=== PATIENT | female | born 1965 | race Caucasian/White ===

== ENCOUNTER 2019-07-25 20:10 | Inpatient (IN) | payer SELFPAY ==
[~2019-07-25] VITALS: Ht 165.1 cm; Wt 64.0 kg
--- NOTE | 2019-07-25 20:16 | NUR ---
"[id number] FROM [facility], PT GIVEN 5MG VERSED PER EMS." PT TO BED 7, PT ON MONITOR, VSS, NAD NOTED, PENDIGN MD MUNOZ
[2019-07-25 20:46] LABS: BASOPHILS % (AUTO) 1.2 % (0.0-2.0); EOSINOPHILS % (AUTO) 1.5 % (0.0-6.0); HEMATOCRIT 34 % (33-45); HEMOGLOBIN 11.6 g/dL (11.5-14.8); LYMPHOCYTES # (AUTO) 0.4 /CMM (0.8-4.8); LYMPHOCYTES % (AUTO) 15.5 % (20.0-44.0); MEAN CORPUSCULAR HGB CONC 34 g/dl (31.0-36.0); MEAN CORPUSCULAR VOLUME 102 fL (82-100); MONOCYTES # (AUTO) 0.3 /CMM (0.1-1.30); NEUTROPHILS # (AUTO) 1.8 /CMM (1.8-8.9); NEUTROPHILS % (AUTO) 70.8 % (43.0-81.0); PLATELET COUNT (AUTO) 71 /CMM (150-450); RED BLOOD CELL COUNT(AUTO) 3.35 MIL/uL (4.0-5.2); WHITE BLOOD COUNT (AUTO) 2.6 K/uL (4.3-11.0)
[2019-07-25 20:56] LABS: CALCIUM, SERUM 8.7 mg/dL (8.5-10.1); CREATININE 0.5 mg/dL (0.6-1.3); POTASSIUM 3.3 mmol/L (3.5-5.1)
[2019-07-25 21:02] LABS: ALBUMIN 3.1 g/dL (3.4-5.0); BILIRUBIN,TOTAL 2.2 mg/dL (0.2-1.0); TOTAL PROTEIN, SERUM 7.6 g/dL (6.4-8.2)
[2019-07-25 21:28] LABS: LYMPHOCYTES % (MANUAL) 13 % (16-48); MONOCYTES % (MANUAL) 7 % (0-11.0); NEUTROPHILS % (MANUAL) 80 (42-76)
--- NOTE | 2019-07-25 22:05 | NUR ---
PAGED DR. PARKER
--- NOTE | 2019-07-25 22:23 | NUR ---
BED ASSIGNMENT: 322-1
--- NOTE | 2019-07-25 22:55 | NUR ---
REPORT GIVEN TO BJORN ELDRIDGE FOR ROSE MARIE PT WILL BE TRANSPOERTED TO 3RD FLOOR
[2019-07-25 23:00] VITALS: BP 96/62
[2019-07-25] MEDS ORDERED: MAGNESIUM HYDROXIDE 30 ML UDC PO PRN (23:00)
[2019-07-25] MEDS ORDERED: MAG HYDROX/AL HYDROX/SIMETH 30 ML UDC PO PRN (23:00)
[2019-07-25] MEDS ORDERED: LORAZEPAM INJ 2 MG/ML VIAL IV PRN (23:00)
--- NOTE | 2019-07-25 23:00 | NUR ---
TELE/RN NOTES RECEIVED PT. FROM ER VIA WHEELCHAIR. PT. IS AWAKE, ALERT AND ORIENTED X3. BREATHING EVEN AND UNLABORED ON ROOM AIR. NO SOB OR RESPIRATORY DISTRESS NOTED AT THIS TIME. PT. COMPLAINING OF HEADACHE, WILL ADMINISTER TO PT. PAIN MEDICATION ORDERED. PT. WITH LEFT AC 18 GAUGE IV SALINE LOCK PRESENT, PATENT AND INTACT. PLACED EXTERNAL LEAD TECHNICIAN ON PT. CURRENT RHYTHM = SINUS RHYTHM HR 67. BED LOCKED AND IN LOWEST POSITION, SIDE RAILS UP X3, BED ALARM ON, CALL LIGHT WITHIN REACH. SAFETY, ASPIRATION AND SEIZURE PRECAUTIONS IMPLEMENTED AND IN PLACE. WILL CONTINUE TO MONITOR.
[2019-07-25] MEDS: FOLIC ACID 1 MG TABLET PO SCH (23:39)
[2019-07-25] MEDS: IV D5/0.45 NACL 1,000 ML IV PRN (23:39)
[2019-07-25] MEDS: LEVETIRACETAM (250 MG) 250 MG TABLET PO SCH (23:39)
[2019-07-25] MEDS: THIAMINE HCL 100 MG TABLET PO SCH (23:39)
[2019-07-25] MEDS: HYDROCODONE/APAP 5/325MG 1 EACH TABLET PO PRN (23:41)
[2019-07-26 04:27] VITALS: BP 92/57
[2019-07-26] MEDS: HYDROCODONE/APAP 5/325MG 1 EACH TABLET PO PRN ×3 (06:02→20:05)
--- NOTE | 2019-07-26 06:16 | NUR ---
TELE/RN NOTES PT. IS LYING IN BED RESTING, BREATHING EVEN AND UNLABORED ON ROOM AIR. NO SOB, RESPIRATORY DISTRESS OR COMPLAINTS OF PAIN NOTED AT THIS TIME. PT. WITH LEFT AC 18 GAUGE IV SALINE LOCK PRESENT, PATENT AND INTACT. PT. WITH EXTERNAL GAUGE OPERATOR PRESENT AND INTACT, PT. CURRENT RHYTHM = SINUS RHYTHM HR 65. ALL PT. NEEDS MET. BED LOCKED AND IN LOWEST POSITION, SIDE RAILS UP X3, BED ALARM ON, CALL LIGHT WITHIN REACH. SAFETY, ASPIRATION AND SEIZURE PRECAUTIONS IMPLEMENTED AND IN PLACE. WILL ENDORSE TO DAYSHIFT NURSE FOR CONTINUITY OF CARE.
[2019-07-26 06:56] LABS: BASOPHILS % (AUTO) 0.9 % (0.0-2.0); EOSINOPHILS % (AUTO) 3.1 % (0.0-6.0); HEMATOCRIT 34 % (33-45); HEMOGLOBIN 11.6 g/dL (11.5-14.8); LYMPHOCYTES # (AUTO) 0.5 /CMM (0.8-4.8); LYMPHOCYTES % (AUTO) 21.7 % (20.0-44.0); MEAN CORPUSCULAR HGB CONC 34 g/dl (31.0-36.0); MEAN CORPUSCULAR VOLUME 103 fL (82-100); MONOCYTES # (AUTO) 0.3 /CMM (0.1-1.30); NEUTROPHILS # (AUTO) 1.5 /CMM (1.8-8.9); NEUTROPHILS % (AUTO) 60.3 % (43.0-81.0); PLATELET COUNT (AUTO) 63 /CMM (150-450); RED BLOOD CELL COUNT(AUTO) 3.35 MIL/uL (4.0-5.2); WHITE BLOOD COUNT (AUTO) 2.4 K/uL (4.3-11.0)
[2019-07-26] MEDS ORDERED: LEVE500T9 PO (07:29)
[2019-07-26 07:56] VITALS: BP 127/88
[2019-07-26 08:00] VITALS: BP 101/65
[2019-07-26 08:33] LABS: CALCIUM, SERUM 8.2 mg/dL (8.5-10.1); CREATININE 0.6 mg/dL (0.6-1.3); MAGNESIUM 1.5 mg/dL (1.8-2.4); PHOSPHORUS 3.5 mg/dL (2.5-4.9); POTASSIUM 3.3 mmol/L (3.5-5.1)
[2019-07-26] MEDS ORDERED: HYDR-4384 PO (08:47)
[2019-07-26 08:50] LABS: LYMPHOCYTES % (MANUAL) 24 % (16-48); MONOCYTES % (MANUAL) 10 % (0-11.0); NEUTROPHILS % (MANUAL) 66 (42-76)
[2019-07-26] MEDS: LEVETIRACETAM (250 MG) 250 MG TABLET PO SCH ×2 (08:54→20:06)
[2019-07-26] MEDS: THIAMINE HCL 100 MG TABLET PO SCH (08:54)
[2019-07-26] MEDS: FOLIC ACID 1 MG TABLET PO SCH (08:54)
[2019-07-26 10:19] LABS: THYROID STIMULATING HORMONE 12.074 uIU/mL (0.358-3.74)
[2019-07-26] MEDS ORDERED: POTASSIUM CHLORIDE 20 MEQ TAB.PRT.SR PO SCH (11:30)
[2019-07-26 11:35] VITALS: BP 99/56
[2019-07-26] MEDS: Magnesium 1GM/D5W 100ML PREMIX 100 ML IV SCH ×2 (11:56→13:48)
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
[2019-07-26 16:00] VITALS: BP 94/56
[2019-07-26] MEDS: IV D5/0.45 NACL 1,000 ML IV PRN (16:39)
--- NOTE | 2019-07-26 18:50 | NUR ---
PT. IS AWAKE, ALERT AND ORIENTED X3. BREATHING EVEN AND UNLABORED ON ROOM AIR. NO DISTRESS NOTED PT. COMPLAINED OF HEADACHE, PAIN MEDS ADMINISTRATED. PT. WITH LEFT AC 18 GAUGE IV SALINE LOCK INTACT, PATENT. BED LOCKED AND IN LOWEST POSITION, SIDE RAILS UP X3, BED ALARM ON, CALL LIGHT WITHIN REACH. SAFETY, ASPIRATION AND SEIZURE PRECAUTIONS IMPLEMENTED AND IN PLACE. ALL NEEDS ATTENDED.WILL ENDORSE TO NEXT SHIFT.
--- NOTE | 2019-07-26 19:00 | NUR ---
MS RN NOTE RECEIVED PT IN STABLE CONDITION, A/O X3. CURRENTLY IN BED USING PHONE. NO SIGNS OF SOB OR DISTRESS, NO C/O PAIN, N/V. IV IN L AC #[address] WITH IVF INFUSING. ALL CURRENT NEEDS ATTENDED TO. BED LOW, LOCKED, UPPER RAILS UP, SEIZURE PRECAUTIONS IN PLACE, AND CALL LIGHT WITHIN REACH. WILL CONT. TO MONITOR CLOSELY.
[2019-07-26] MEDS: ONDANSETRON HCL/PF 4 MG/2 ML VIAL IVP PRN (20:06)
[2019-07-26 20:23] VITALS: BP 141/85
--- NOTE | 2019-07-26 20:43 | NUR ---
MS RN NOTE NORCO GIVEN FOR HEADACHE 7/10 AND NAUSEA. NORCO 5/325 1 TAB PO GIVEN AND ZOFRAN 4 MG IV GIVEN. WILL CONT. TO MONITOR.
[2019-07-26] MEDS: ZOLPIDEM TARTRATE 5 MG TABLET PO PRN (22:34)
--- NOTE | 2019-07-26 22:35 | NUR ---
MS RN NOTE PRN AMBIEN GIVEN FOR C/O DIFFICULTY SLEEPING. WILL CONT. TO MONITOR.
[2019-07-27] MEDS: ACETAMINOPHEN 325 MG TABLET PO PRN ×3 (00:41→20:17)
--- NOTE | 2019-07-27 00:41 | NUR ---
MS RN NOTE PT. NOTED WITH HEADACHE, TYLENOL 650 MG GIVEN PO. WILL CONT. TO MONITOR
--- NOTE | 2019-07-27 06:39 | NUR ---
MS RN NOTE PT IN STABLE CONDITION, A/O X3. CURRENTLY IN BED RESTING. NO SIGNS OF SOB OR DISTRESS, NO C/O PAIN, N/V. IV IN R FA #[address] WITH IVF INFUSING. ALL CURRENT NEEDS ATTENDED TO. BED LOW, LOCKED, UPPER RAILS UP, SEIZURE PRECAUTIONS IN PLACE, AND CALL LIGHT WITHIN REACH. WILL CONT. TO MONITOR AND ENDORSE TO NEXT SHIFT FOR ROSE MARIE.
[2019-07-27 07:05] LABS: BASOPHILS % (AUTO) 1.1 % (0.0-2.0); EOSINOPHILS % (AUTO) 4.3 % (0.0-6.0); HEMATOCRIT 33 % (33-45); HEMOGLOBIN 11.3 g/dL (11.5-14.8); LYMPHOCYTES # (AUTO) 0.3 /CMM (0.8-4.8); LYMPHOCYTES % (AUTO) 20.3 % (20.0-44.0); MEAN CORPUSCULAR HGB CONC 35 g/dl (31.0-36.0); MEAN CORPUSCULAR VOLUME 101 fL (82-100); MONOCYTES # (AUTO) 0.2 /CMM (0.1-1.30); MONOCYTES % (AUTO) 11.9 % (2.0-12.0); NEUTROPHILS % (AUTO) 62.4 % (43.0-81.0); RED BLOOD CELL COUNT(AUTO) 3.22 MIL/uL (4.0-5.2)
--- NOTE | 2019-07-27 07:15 | NUR ---
MS RN NOTES RECEIVED PATIENT IN BED, ALERT AND AWAKE ORIENTED X3. NO SOB. DENIES ANY C/O PAIN NOR DISCOMFORT AT THIS TIME. AMBULATORY WITH STEADY GAIT. RFA #22 INTACT AND PATENT INFUSING D5 1/2 NS @ 100 ML/HR. BED IN LOWEST POSITION, LOCKED.CALL LIGHT WITHIN REACH.
[2019-07-27 07:44] LABS: ALBUMIN 2.5 g/dL (3.4-5.0); BILIRUBIN,TOTAL 2.9 mg/dL (0.2-1.0); CALCIUM, SERUM 8.3 mg/dL (8.5-10.1); CREATININE 0.6 mg/dL (0.6-1.3); MAGNESIUM 1.6 mg/dL (1.8-2.4); PHOSPHORUS 3.2 mg/dL (2.5-4.9); POTASSIUM 3.5 mmol/L (3.5-5.1); TOTAL PROTEIN, SERUM 6.7 g/dL (6.4-8.2)
[2019-07-27 07:57] LABS: PLATELET COUNT (AUTO) 47 /CMM (150-450); WHITE BLOOD COUNT (AUTO) 1.7 K/uL (4.3-11.0)
--- NOTE | 2019-07-27 07:57 | NUR ---
MS RN NOTES RELAYED TO DR. RUFFIN LAB RESULTS OF WBC: 1.7 AND PLT 47 WITH NNO AT THIS TIME. PATIENT IN NO APPARENT DISTRESS.
[2019-07-27 08:00] VITALS: BP 110/73
[2019-07-27 08:11] LABS: LYMPHOCYTES % (MANUAL) 21 % (16-48); NEUTROPHILS % (MANUAL) 65 (42-76)
[2019-07-27 08:12] LABS: EOSINOPHILS % (MANUAL) 2 % (0-4); MONOCYTES % (MANUAL) 12 % (0-11.0)
[2019-07-27] MEDS: BACITRACIN ZINC OINT PACKET 1 EA PACKET TP SCH (09:13)
[2019-07-27] MEDS: FOLIC ACID 1 MG TABLET PO SCH (09:13)
[2019-07-27] MEDS: LEVETIRACETAM (250 MG) 250 MG TABLET PO SCH ×2 (09:14→20:17)
[2019-07-27] MEDS: THIAMINE HCL 100 MG TABLET PO SCH (09:14)
[2019-07-27] MEDS: Magnesium 1GM/D5W 100ML PREMIX 100 ML IV SCH ×2 (12:24→13:41)
[2019-07-27 16:00] VITALS: BP 104/65
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
--- NOTE | 2019-07-27 18:49 | NUR ---
MS RN CLOSING NOTES ALERT AND AWAKE ORIENTED X3. NO S/S OF RESPIRATORY DISTRESS. DENIES ANY C/O PAIN NOR DISCOMFORT AT THIS TIME. SEIZURE PRECAUTIONS OBSERVED. INDEPENDENT WITH BED MOBILITY. RFA #22 INTACT AND PATENT INFUSING D5 1/2 NS @ 100 ML/HR. BED IN LOWEST POSITION, LOCKED.CALL LIGHT WITHIN REACH. IN NO APPARENT DISTRESS.
--- NOTE | 2019-07-27 19:43 | NUR ---
MS RN NOTE RECEIVED PT IN STABLE CONDITION, A/O X3. CURRENTLY IN BED USING PHONE. NO SIGNS OF SOB OR DISTRESS, NO PAIN IS CURRENTLY TOLERABLE, NO C/O N/V. IV IN R FA #[address] WITH IVF INFUSING. ALL CURRENT NEEDS ATTENDED TO. BED LOW, LOCKED, UPPER RAILS UP, SEIZURE PRECAUTIONS IN PLACE, AND CALL LIGHT WITHIN REACH. WILL CONT. TO MONITOR CLOSELY.
[2019-07-27 20:31] VITALS: BP 115/60
[2019-07-27] MEDS: ZOLPIDEM TARTRATE 5 MG TABLET PO PRN (21:48)
[2019-07-28 06:19] LABS: BASOPHILS % (AUTO) 0.7 % (0.0-2.0); EOSINOPHILS % (AUTO) 4.2 % (0.0-6.0); HEMATOCRIT 35 % (33-45); HEMOGLOBIN 11.7 g/dL (11.5-14.8); LYMPHOCYTES # (AUTO) 0.4 /CMM (0.8-4.8); LYMPHOCYTES % (AUTO) 17.1 % (20.0-44.0); MEAN CORPUSCULAR HGB CONC 34 g/dl (31.0-36.0); MEAN CORPUSCULAR VOLUME 101 fL (82-100); MONOCYTES # (AUTO) 0.3 /CMM (0.1-1.30); MONOCYTES % (AUTO) 12.3 % (2.0-12.0); NEUTROPHILS # (AUTO) 1.5 /CMM (1.8-8.9); NEUTROPHILS % (AUTO) 65.7 % (43.0-81.0); PLATELET COUNT (AUTO) 58 /CMM (150-450); RED BLOOD CELL COUNT(AUTO) 3.41 MIL/uL (4.0-5.2); WHITE BLOOD COUNT (AUTO) 2.3 K/uL (4.3-11.0)
[2019-07-28 06:30] LABS: CALCIUM, SERUM 8.3 mg/dL (8.5-10.1); CREATININE 0.5 mg/dL (0.6-1.3); MAGNESIUM 1.5 mg/dL (1.8-2.4); PHOSPHORUS 3.7 mg/dL (2.5-4.9); POTASSIUM 3.8 mmol/L (3.5-5.1)
--- NOTE | 2019-07-28 06:41 | NUR ---
MS RN NOTE PT IN STABLE CONDITION, A/O X3. CURRENTLY IN BED USING PHONE. NO SIGNS OF SOB OR DISTRESS, NO PAIN IS CURRENTLY TOLERABLE, NO C/O N/V. IV IN R FA #[address] . ALL CURRENT NEEDS ATTENDED TO. BED LOW, LOCKED, UPPER RAILS UP, SEIZURE PRECAUTIONS IN PLACE, AND CALL LIGHT WITHIN REACH. WILL CONT. TO MONITOR CLOSELY AND ENDORSE TO NEXT SHIFT FOR ROSE MARIE.
--- NOTE | 2019-07-28 07:20 | NUR ---
MS RN OPENING NOTES RECEIVED PATIENT IN BED, ASLEEP. AROUSABLE TO VERBAL AND TACTILE STIMULI. NO SOB. DENIES ANY C/O PAIN NOR DISCOMFORT AT THIS TIME. RFA # 22 SL INTACT AND PATENT. PATIENT REFUSED IVF FLUIDS ORDERED. BED IN LOWEST POSITION, LOCKED. CALL LIGHT WITHIN REACH. AMBULATORY WITH STEADY GAIT, BRP.
[2019-07-28 08:00] VITALS: BP 103/54
[2019-07-28] MEDS: ONDANSETRON HCL/PF 4 MG/2 ML VIAL IVP PRN (09:37)
[2019-07-28] MEDS: BACITRACIN ZINC OINT PACKET 1 EA PACKET TP SCH (09:38)
[2019-07-28] MEDS: THIAMINE HCL 100 MG TABLET PO SCH (09:39)
[2019-07-28] MEDS: LEVETIRACETAM (250 MG) 250 MG TABLET PO SCH (09:39)
[2019-07-28] MEDS: FOLIC ACID 1 MG TABLET PO SCH (09:39)
[2019-07-28] MEDS: Magnesium 1GM/D5W 100ML PREMIX 100 ML IV SCH ×2 (11:41→13:03)
--- NOTE | 2019-07-28 14:12 | NUR ---
ANIHSA met with pt. to discuss discharge plan. Pt. is alert and oriented x 4. Pt. has been medically cleared by the doctor for discharge. Pt. is ambulatory with a steady gait. Per RN, pt. was intentionally trying to make her self vomit so she wouldn't be discharged. Pt. is malingering and told SW yesterday she has a place to go to today since she knows where her pension is now. ANISHA met with pt. bedside to to discuss where she is going. Pt. stated, I don't have anywhere to go. ANISHA offered pt. [facility] placement and spoke to Lakia at [facility] located at [address] regarding bed availibility. Lakia informed ANISHA they do have inflatable beds available. ANISHA gave pt. the address and print out of directions to get to the [facility] via bus. Pt. was also provided with a TAP card to get to her location. Homeless Patient waiver form was given to pt's RN to have pt. sign upon discharge. ANISHA gave pt. the following homeless resources: [facility], [address] [id number] ; [facility], [address] [place] [address] ; [facility], [place] Homeless Resource Directory which includes food stamps, transitional housing, showers and hot meals etc; Mental Health clinics such as [facility] ; [facility] ; Health clinics;[facility] and Alcohol treatment centers such as [facility], ; [facility] Substance Abuse Hotline and [facility] .
--- NOTE | 2019-07-28 15:15 | NUR ---
MS RN CLOSING/DISCHARGE NOTES ALERT AND ORIENTED X4. DENIES ANY C/O PAIN NOR DISCOMFORT AT THIS TIME. NO SOB OBSERVED. DISCHARGE INSTRUCTIONS AND EDUCATION EXPLAINED WITH DISCHARGE PACKET GIVEN TO PATIENT. IV ACCESS REMOVED WITH CATHETER TIP INTACT WITH GAUZE DRESSING IN PLACE. PATIENT INDEPENDENT WITH ADL'S . ALL BELONGINGS ACCOUNTED FOR. PATIENT REFUSED TO HAVE PICTURES TAKEN OF WOUND. PATIENT REFUSED TO SIGN HOMELESS WAIVER. PLATE GLASS INSTALLER GAVE INFORMATION FOR RESOURCES TO PATIENT. TAP CARD GIVEN TO PATIENT. PATIENT DISCHARGED TO [address] [phone] WITH DIRECTIONS GIVEN TO PATIENT BY PLATE GLASS INSTALLER. PATIENT LEFT IN STABLE CONDITION. AMBULATORY WITH STEADY GAIT.
--- NOTE | 2019-07-29 07:54 | NUR ---
WOUND CARE (LATE ENTRY): PT WAS SEEN ON 07/26/19 FOR SKIN ASSESSMENT AND NOTED TO HAVE RT POSTERIOR ANKLE ESCHAR WITH PLANTAR FOOT AND TOE ABRASIONS/BLISTERS, PRESENT ON ADMISSION. DPM CONSULT WAS REQUESTED. ADOLPH SCORE WAS 20 AT THAT TIME.
== END 2019-07-28 15:30 | disposition home or self-care (01) | DRG 101 ==
LOC: ER 20:15 → MED 22:33 → TELE 23:10 → MED 07-26 11:34
PROVIDERS: ATTEND Nurse Practitioner Acute Care
DX: G40.509 Epileptic seizures related to external causes, not intractable, without status epilepticus (principal); F10.239 Alcohol dependence with withdrawal, unspecified; E44.1 Mild protein-calorie malnutrition; D61.818 Other pancytopenia; D68.9 Coagulation defect, unspecified; I69.359 Hemiplegia and hemiparesis following cerebral infarction affecting unspecified side; K74.60 Unspecified cirrhosis of liver; D75.89 Other specified diseases of blood and blood-forming organs; L89.890 Pressure ulcer of other site, unstageable; K70.10 Alcoholic hepatitis without ascites; E83.42 Hypomagnesemia; G93.89 Other specified disorders of brain
CPT/HCPCS: 36415; 70450-TC; 80048-TC; 80053-TC; 80061-TC; 80076-TC; 80305; 83690-TC; 83735-TC; 84100-TC; 84443-TC; 85025-TC; 85730-TC; 87081-TC; 97116-TC; 97530-TC; G0378; G0480; J2405; J3475; J3490

== ENCOUNTER 2020-08-28 12:39 | Inpatient (IN) | payer MEDICAID ==
[~2020-08-28] VITALS: Ht 167.6 cm; Wt 60.8 kg
[~2020-08-28 12:39] MED LIST: LEVE500T9 PO
--- NOTE | 2020-08-28 12:55 | NUR ---
sho, found in her car, verbalized that she had a seizure off her meds for awhile per patient, no injury or truama, BS 118. PT AAOX2, VSS. RR EVEN & UNLABORED. DENIES CP, SOB, DIZZINESS, N/V AT THIS TIME. PT SEEN & EVAL'D BY DR. RAMOS. PLACED ON MILLWRIGHT SUPERVISOR, SR. PLACED ON SEIZURE PRECAUTION. WILL CONT TO MONITOR.
[2020-08-28 13:35] LABS: BASOPHILS % (AUTO) 0.8 % (0.0-2.0); EOSINOPHILS % (AUTO) 1.1 % (0.0-6.0); HEMATOCRIT 34 % (33-45); HEMOGLOBIN 11.3 g/dL (11.5-14.8); LYMPHOCYTES # (AUTO) 0.6 /CMM (0.8-4.8); LYMPHOCYTES % (AUTO) 14.9 % (20.0-44.0); MEAN CORPUSCULAR HGB CONC 33 g/dl (31.0-36.0); MEAN CORPUSCULAR VOLUME 105 fL (82-100); MONOCYTES # (AUTO) 0.5 /CMM (0.1-1.30); MONOCYTES % (AUTO) 13.8 % (2.0-12.0); NEUTROPHILS # (AUTO) 2.7 /CMM (1.8-8.9); NEUTROPHILS % (AUTO) 69.4 % (43.0-81.0); PLATELET COUNT (AUTO) 96 /CMM (150-450); RED BLOOD CELL COUNT(AUTO) 3.27 MIL/uL (4.0-5.2)
[2020-08-28 13:47] LABS: ALANINE AMINOTRANSFERASE 56 U/L (12-78); ALBUMIN 2.6 g/dL (3.4-5.0); ALCOHOL, BLOOD < 3 mg/dL (0-0); ALKALINE PHOSPHATASE 217 U/L (46-116); ASPARTATE AMINOTRANSFERASE 159 U/L (15-37); BILIRUBIN,DIRECT 2.7 mg/dL (0.0-0.2); BILIRUBIN,TOTAL 3.8 mg/dL (0.2-1.0); CARBON DIOXIDE 26 mmol/L (21-32); CHLORIDE 105 mmol/L (98-107); CREATININE 0.6 mg/dL (0.6-1.3); GLUCOSE 95 mg/dL (74-106); POTASSIUM 3.6 mmol/L (3.5-5.1); SODIUM SERUM 139 mmol/L (136-145); TOTAL PROTEIN, SERUM 8.2 g/dL (6.4-8.2); UREA NITROGEN, BLOOD 4 mg/dL (7-18)
[2020-08-28] MEDS ORDERED: LORAZEPAM INJ 2 MG/ML VIAL ONE (13:49)
--- NOTE | 2020-08-28 13:50 | NUR ---
MEDICATED PER ERMD ORDER, PT DUC WELL.
[2020-08-28 13:55] LABS: ACETAMINOPHEN 0 ug/ml (10-30)
[2020-08-28] MEDS ORDERED: LEVETIRACETAM (500MG) 500 MG in IV NS 0.9% 100 ML IV ONE (14:00)
[2020-08-28] MEDS ORDERED: LORAZEPAM INJ 2 MG/ML VIAL IVP ONE (14:00)
--- NOTE | 2020-08-28 14:41 | NUR ---
COVID TEST DONE & SENT TO LAB
--- NOTE | 2020-08-28 15:07 | NUR ---
PT ASLEEP, EASILY AWAKEN BY VERBAL STIMULI & WILL GO BACK TO SLEEP. RR EVEN & UNLABORED. NAD NOTED AT THIS TIME. WILL CONT TO MONITOR.
[2020-08-28] MEDS ORDERED: HYDROCODONE/APAP 5/325MG TABLET PO PRN (15:30)
[2020-08-28] MEDS ORDERED: MAGNESIUM HYDROXIDE 30 ML UDC PO PRN (15:30)
[2020-08-28] MEDS ORDERED: ONDANSETRON HCL/PF 4 MG/2 ML VIAL IVP PRN (15:30)
[2020-08-28] MEDS ORDERED: Z GUARD REMEDY 2 OZ OINT TP PRN (15:30)
[2020-08-28] MEDS ORDERED: MAG HYDROX/AL HYDROX/SIMETH 30 ML UDC PO PRN (15:30)
[2020-08-28] MEDS ORDERED: ACETAMINOPHEN 325 MG TABLET PO PRN (15:30)
[2020-08-28] MEDS ORDERED: ZOLPIDEM TARTRATE 5 MG TABLET PO PRN (15:30)
[2020-08-28 16:00] LABS: APPEARANCE,URINE CLEAR (CLEAR); BILIRUBIN,URINE NEGATIVE (NEGATIVE); BLOOD, URINE NEGATIVE Ery/uL (NEGATIVE); COLOR,URINE YELLOW (YELLOW); KETONES,URINE NEGATIVE (NEGATIVE); LEUKOCYTE ESTERASE ,URINE TRACE (NEGATIVE); NITRITE, URINE NEGATIVE (NEGATIVE); PH,URINE 8.5 (5.0-8.0); PROTEIN,URINE NEGATIVE (NEGATIVE); UGLUCOSE NEGATIVE (NEGATIVE)
--- NOTE | 2020-08-28 16:08 | NUR ---
REPORT GIVEN TO JAZMYN HAWKINS FOR ROSE MARIE.
[2020-08-28 16:10] LABS: BACTERIA,URINE Few /HPF (None Seen); RBC,URINE 0-2 /HPF (0-2)
[2020-08-28 16:11] LABS: SQUAMOUS EPITHELIAL CELL,UR Few /HPF (None Seen); URINE AMORPHOUS PHOSPHATES Few /HPF (None Seen)
[2020-08-28 16:30] VITALS: BP 94/60
--- NOTE | 2020-08-28 16:30 | NUR ---
ms rn received a new admission from er, patient is awake, oriented x3,came in w/ dx of seizure per paramedics, respirations even and unlabored,no sob noted,abdomen soft,positive bowel sounds, sleeping. no complain of pain at this time,all needs attended.
--- NOTE | 2020-08-28 16:45 | NUR ---
ms rn was seen by neurologist, awaiting for orders.
--- NOTE | 2020-08-28 19:42 | NUR ---
RN OPENING NOTES PATIENT RECEIVED RESTING IN BED A/O X 3. STABLE ON RA WITH BREATHING EVEN AND UNLABORED, NO SOB NOTED. NO SIGNS OF ACUTE DISTRESS. NO COMPLAINTS OF PAIN OR DISCOMFORT AT THE MOMENT. IV LOCATED ON L AC #20 RUNNING D5 1/2 NS @ 75 ML/HR. SAFETY PRECAUTIONS IN PLACE WITH BED IN LOWEST POSITION, CALL LIGHT WITHIN REACH, BREAKS ON, SIDE RAILS UP. WILL CONTINUE TO MONITOR THROUGHOUT THE NIGHT.
[2020-08-28 20:00] VITALS: BP 93/66
[2020-08-28] MEDS: IV D5/0.45 NACL 1,000 ML IV PRN (20:01)
[2020-08-28] MEDS ORDERED: ENOXAPARIN SODIUM 40 MG/0.4 ML DISP.SYRIN SQ SCH (21:00)
[2020-08-28] MEDS: LEVETIRACETAM (250 MG) 250 MG TABLET PO SCH (21:43)
[2020-08-29] VITALS: BP 92/54
[2020-08-29 04:00] VITALS: BP 92/54
[2020-08-29] MEDS: IV D5/0.45 NACL 1,000 ML IV PRN (06:07)
--- NOTE | 2020-08-29 06:37 | NUR ---
RN CLOSING NOTES PATIENT RESTING IN BED A/O X 3. STABLE ON RA WITH BREATHING EVEN AND UNLABORED, NO SOB NOTED. NO SIGNS OF ACUTE DISTRESS. NO COMPLAINTS OF PAIN OR DISCOMFORT AT THE MOMENT. TELE MONITOR READING SR WITH PAC. IV LOCATED ON AC #20 RUNNING D5 1/2 NS @ 75 ML/HR. SAFETY PRECAUTIONS IN PLACE WITH BED IN LOWEST POSITION, CALL LIGHT WITHIN REACH, BREAKS ON, SIDE RAILS UP. ALL NEEDS ATTENDED TO. WILL ENDORSE TO ONCOMING SHIFT ABOUT ROSE MARIE.
[2020-08-29 06:55] LABS: BASOPHILS % (AUTO) 0.9 % (0.0-2.0); EOSINOPHILS % (AUTO) 1.9 % (0.0-6.0); HEMATOCRIT 31 % (33-45); HEMOGLOBIN 10.4 g/dL (11.5-14.8); LYMPHOCYTES # (AUTO) 0.5 /CMM (0.8-4.8); LYMPHOCYTES % (AUTO) 16.2 % (20.0-44.0); MEAN CORPUSCULAR HGB CONC 33 g/dl (31.0-36.0); MEAN CORPUSCULAR VOLUME 105 fL (82-100); MONOCYTES # (AUTO) 0.4 /CMM (0.1-1.30); MONOCYTES % (AUTO) 12.7 % (2.0-12.0); NEUTROPHILS % (AUTO) 68.3 % (43.0-81.0); PLATELET COUNT (AUTO) 84 /CMM (150-450); RED BLOOD CELL COUNT(AUTO) 2.96 MIL/uL (4.0-5.2); WHITE BLOOD COUNT (AUTO) 2.9 K/uL (4.3-11.0)
--- NOTE | 2020-08-29 07:10 | NUR ---
EDITOR PUBLICATIONS NOTES ON TELEMONITORING SR WITH ARRYTHIMA WITH PAC AND PVC WITH A RATE OF 83.
--- NOTE | 2020-08-29 07:10 | NUR ---
C D STILL OPERATOR NOTES RECEIVED PATIENT IN BED ASLEEP. AROUSABLE TO VERBAL AND TACTILE STIMULI. HOB ELEVATED. NO SOB. ON ROOM AIR WITH SPO2 OF 99%. DENIES ANY C/O PAIN NOR DISCOMFORT AT THIS TIME. LEFT AC # 20 INTACT AND PATENT INFUSING D5 1/2 NS AT 75ML/HR. AMBULATORY WITH STEADY GAIT. ABLE TO VERBALIZE NEEDS. BED IN LOWEST POSITION, LOCKED. CALL LIGHT WITHIN REACH.
[2020-08-29 07:15] LABS: THYROID STIMULATING HORMONE 8.84 uIU/mL (0.358-3.74)
[2020-08-29 07:33] LABS: CREATININE 0.4 mg/dL (0.6-1.3); MAGNESIUM 1.6 mg/dL (1.8-2.4); PHOSPHORUS 3.3 mg/dL (2.5-4.9); POTASSIUM 3.2 mmol/L (3.5-5.1)
[2020-08-29] MEDS: LEVETIRACETAM (250 MG) 250 MG TABLET PO SCH (08:26)
--- NOTE | 2020-08-29 10:45 | NUR ---
MS/RN NOTE Received report from Edie ELDRIDGE. Patient will be transferred to [facility] shortly.
--- NOTE | 2020-08-29 11:00 | NUR ---
TELE/RN NOTE Patient received in bed at room 328-1. VSS, afebrile, no SOB noted. Denies any pain/discomfort at this time. Breathing even and non-labored on RA, no SOB noted. No cardiac distress noted. On tele monitor, reading SR with PACs and PVCs 80. No IV access noted, will attempt to reinsert later as patient pleases, she refuses at this time since she wants to "rest". Sensation from all peripheral extremities intact. Fall and seizure precautions implemented. Will continue to monitor closely.
--- NOTE | 2020-08-29 11:04 | NUR ---
ARCHITECT MARINE NOTES COVID RESULTS NEGATIVE, TRANSFERRED PATIENT TO [address] [place] ROOM 328. REPORT GIVEN TO JAZMYN DEMARCO. TRANSFERRED APTIENT VIA ACLS PROTOCOL.
[2020-08-29] MEDS ORDERED: Magnesium 1GM/D5W 100ML PREMIX 100 ML IV SCH (11:30)
[2020-08-29] MEDS: Magnesium 1GM/D5W 100ML PREMIX 100 ML IV SCH ×2 (11:30→12:30)
[2020-08-29] MEDS: POTASSIUM CHLORIDE 20 MEQ POWDER PACKET PO SCH ×2 (12:28→12:50)
--- NOTE | 2020-08-29 12:30 | NUR ---
FLEXOGRAPHIC PRINTING MACHINIST NOTE Patient refused 2nd dose of KCLOR CON supplement powder packet, educated risks and benefits, still insists on not taking it. Wasted medication on the waste receptacle.
--- NOTE | 2020-08-29 12:54 | NUR ---
TELE/RN NOTE Patient expresses wanting to leave hospital. She states that "these seizures has happened to me 2-3 times before, and I got medication from here that helped it. I think it's best for me to go home. Educated patient risks and benefits of leaving against medical advice x 3, patient still insists of going home. Charge nurse made aware, notified .
[2020-08-29] MEDS ORDERED: POTASSIUM CHLORIDE 20 MEQ POWDER PACKET PO SCH (13:00)
--- NOTE | 2020-08-29 13:15 | NUR ---
TELE/RN NOTE: AMA Patient signed AMA papers and belongings list, reinforced education about risks and benefits of leaving the hospital. Patient still insists of wanting to go home, states "I feel better and I believe that I can go home." Removed ID band, no IV access noted. Patient left facility safely with all belongings in hand.
== END 2020-08-29 13:20 | disposition left against medical advice (07) | DRG 53 ==
LOC: ER 12:45 → TELE2 16:03 → TELE 08-29 11:25
DX: G40.909 Epilepsy, unspecified, not intractable, without status epilepticus (principal); K70.10 Alcoholic hepatitis without ascites; D61.818 Other pancytopenia; I69.351 Hemiplegia and hemiparesis following cerebral infarction affecting right dominant side; Z79.899 Other long term (current) drug therapy; K70.30 Alcoholic cirrhosis of liver without ascites; G93.89 Other specified disorders of brain
CPT/HCPCS: 36415; 70450-TC; 71045-TC; 80048-TC; 80061-TC; 80076-TC; 81000-TC; 83735-TC; 84100-TC; 84443-TC; 84484-TC; 85025-TC; 87081-TC; 87086-TC; 97112-TC; 97116-TC; 97530-TC; G0378; G0480; J1650; J1953; J2060; J3490; J7030; U0003